=== PATIENT | male | born 1960 | race Caucasian/White ===

== ENCOUNTER 2018-07-24 13:12 | Day surgery (SDC) | payer OTHER ==
[~2018-07-24] VITALS: Ht 180.3 cm; Wt 91.0 kg
[~2018-07-24 13:12] MED LIST: ATOR80 PO; CEPH500 PO; CLOP75 PO; Depakene250 MG PO; LEVSOD50 PO; Lopressor 25 mg25 MG PO; METF500C PO; SERT100 PO; SILDENAFIL CIT100 MG PO
--- NOTE | 2018-07-24 14:44 | NUR ---
07/24/18 1444 Ramiro Jauregui LATE ENTRY-1416 PATIENT DRANK A LARGE GLASS OF CRANBERRY JUICE AND STATES HE FEELS GOOD AND IS READY TO GO HOME. VSS
--- NOTE | 2018-07-24 14:47 | NUR ---
07/24/18 1447 Ramiro Jauregui LATE ENTRY-1340 PATIENT HAD A CBG OF [address] HILL NOTIFIED. DR HILL ORDERED DEXTROSE 50% GIVE 1/2 AN AMP IV. GAVE PATIENT THE DEXTROSE AND HE STATED HE FELT MUCH BETTER ALREADY. DR HILL STATED NO NEED TO RECHECK CBG BECAUSE HE IS GOING TO EAT AFTER AND DRINK.
== END 2018-07-24 14:35 | disposition home or self-care (01) ==
LOC: ORSCSDS 13:12
PROVIDERS: Internal Medicine Gastroenterology
PROC: 0DBM8ZX Excision of Descending Colon, Via Natural or Artificial Opening Endoscopic, Diagnostic (ICD-10-PCS; principal; 2018-07-24 14:45)
PROC: 0DBP8ZX Excision of Rectum, Via Natural or Artificial Opening Endoscopic, Diagnostic (ICD-10-PCS; principal; 2018-07-24 14:45)
DX: Z12.11 Encounter for screening for malignant neoplasm of colon (principal); D12.4 Benign neoplasm of descending colon; K62.1 Rectal polyp; K64.8 Other hemorrhoids; K57.30 Diverticulosis of large intestine without perforation or abscess without bleeding; E03.9 Hypothyroidism, unspecified; E11.9 Type 2 diabetes mellitus without complications; I10 Essential (primary) hypertension; F31.9 Bipolar disorder, unspecified; Z87.891 Personal history of nicotine dependence; Z79.899 Other long term (current) drug therapy; Z79.84 Long term (current) use of oral hypoglycemic drugs
CPT/HCPCS: 82947; 88305; J7120

== ENCOUNTER 2022-03-10 10:23 | Day surgery (SDC) | payer OTHER ==
[~2022-03-10] VITALS: Ht 180.3 cm; Wt 87.0 kg
[~2022-03-10 10:23] MED LIST changes: +Aspir 8181 MG PO; +BUSP10 PO; +Crestor40 MG PO; +GLIP10 PO; +Lisinopril2.5 MG PO; +NITR.4SL SL
[2022-03-10] MEDS ORDERED: Primidone50 MG PO (10:54)
--- NOTE | 2022-03-10 11:59 | NUR ---
History, Chart, Medications and Allergies reviewed before start of procedure. Patient States Post-Procedure ride home has been arranged.
--- NOTE | 2022-03-10 13:49 | NUR ---
03/10/22 [facility] 15ML ISOVUE INJECTED DURING POWERPORT PLACEMENT
--- NOTE | 2022-03-10 15:20 | NUR ---
Patient up to Ambulate independently. Gait steady. Discharge instructions reviewed with patient. Patient verbalizes understanding. Copy given to patient to take home, WELL . Patient States Post-Procedure ride home has been arranged. Discharged via wheelchair to private car for ride home. DRESSING REMAINED C/D/I. PT REPORTS READY TO GO HOME. PT TOLERATING PO.
== END 2022-03-10 15:20 | disposition home or self-care (01) ==
LOC: ORSCMMR 10:23 → ORD 12:00 → ORSCMMR 12:00
PROVIDERS: Surgery
PROC: 05HM33Z Insertion of Infusion Device into Right Internal Jugular Vein, Percutaneous Approach (ICD-10-PCS; principal; 2022-03-10 12:00)
DX: C22.1 Intrahepatic bile duct carcinoma (principal); I25.2 Old myocardial infarction; I25.10 Atherosclerotic heart disease of native coronary artery without angina pectoris; J45.909 Unspecified asthma, uncomplicated; F31.9 Bipolar disorder, unspecified; K21.9 Gastro-esophageal reflux disease without esophagitis; E11.9 Type 2 diabetes mellitus without complications; E78.5 Hyperlipidemia, unspecified; E03.9 Hypothyroidism, unspecified; Z79.82 Long term (current) use of aspirin; Z79.899 Other long term (current) drug therapy
CPT/HCPCS: 77001; 82947; C1788; J0690; J1100; J1642; J1885; J2250; J2405; J2704; J3010; J7120

== ENCOUNTER 2022-06-21 13:17 | Day surgery (SDC) | payer OTHER ==
[~2022-06-21 13:17] MED LIST changes: +Primidone50 MG PO
[2022-06-21] MEDS ORDERED: ZYPREXA2.5 MG PO (14:27)
[2022-06-21] MEDS ORDERED: TRULICITY0.75 MG/01 SC (14:29)
== END 2022-06-21 16:26 | disposition home or self-care (01) ==
LOC: ATC 13:17
DX: C22.1 Intrahepatic bile duct carcinoma (principal)
CPT/HCPCS: 36415; 86850; 86900; 86901; 86920; J1642; J7040; P9016

== ENCOUNTER 2022-06-23 10:23 | Day surgery (SDC) | payer OTHER ==
[~2022-06-23 10:23] MED LIST changes: +TRULICITY0.75 MG/01 SC; +ZYPREXA2.5 MG PO
== END 2022-06-23 17:15 | disposition home or self-care (01) ==
LOC: ATC 10:23
DX: C22.1 Intrahepatic bile duct carcinoma (principal)
CPT/HCPCS: 86900; 86901; J1642; J7040; P9035

== ENCOUNTER 2022-12-13 12:04 | Day surgery (SDC) | payer OTHER ==
[2022-12-13 14:43] VITALS: BP 109/72
[2022-12-13 15:02] VITALS: BP 95/63
[2022-12-13 16:31] VITALS: BP 100/64
[2022-12-13 17:44] VITALS: BP 94/68
== END 2022-12-13 22:52 | disposition home or self-care (01) ==
LOC: ATC 12:04
DX: D64.81 Anemia due to antineoplastic chemotherapy (principal); C22.1 Intrahepatic bile duct carcinoma; J45.909 Unspecified asthma, uncomplicated; E11.9 Type 2 diabetes mellitus without complications; E03.9 Hypothyroidism, unspecified; E78.5 Hyperlipidemia, unspecified; Z95.5 Presence of coronary angioplasty implant and graft; Z87.891 Personal history of nicotine dependence
CPT/HCPCS: 36415; 36430; 86850; 86900; 86901; 86923; J1642; J7050; P9016

== ENCOUNTER 2022-12-16 00:51 | Day surgery (SDC) | payer OTHER ==
[2022-12-16 13:54] VITALS: BP 89/55
[2022-12-16 14:17] VITALS: BP 85/55
[2022-12-16 14:41] VITALS: BP 85/55
[2022-12-16 15:15] VITALS: BP 90/42
== END 2022-12-16 15:20 | disposition home or self-care (01) ==
LOC: ATC 00:51
DX: D69.6 Thrombocytopenia, unspecified (principal); C22.1 Intrahepatic bile duct carcinoma; E11.9 Type 2 diabetes mellitus without complications; E03.9 Hypothyroidism, unspecified; E78.5 Hyperlipidemia, unspecified; J45.909 Unspecified asthma, uncomplicated; Z95.5 Presence of coronary angioplasty implant and graft; Z87.891 Personal history of nicotine dependence; Z79.82 Long term (current) use of aspirin; Z79.899 Other long term (current) drug therapy
CPT/HCPCS: 36430; 86900; 86901; J1642; J7050; P9035

== ENCOUNTER 2023-01-18 01:05 | Day surgery (SDC) | payer OTHER ==
[2023-01-18 14:57] VITALS: BP 96/63
[2023-01-18 15:13] VITALS: BP 91/59
[2023-01-18 16:15] VITALS: BP 103/62
[2023-01-18 16:30] VITALS: BP 103/62
== END 2023-01-18 16:33 | disposition home or self-care (01) ==
LOC: ATC 01:05
DX: D69.6 Thrombocytopenia, unspecified (principal); E11.9 Type 2 diabetes mellitus without complications; E03.9 Hypothyroidism, unspecified; E78.5 Hyperlipidemia, unspecified
CPT/HCPCS: 36430; 86850; 86900; 86901; 86923; J1642; J7050; P9016

== ENCOUNTER 2023-03-15 03:51 | Day surgery (SDC) | payer OTHER ==
[2023-03-15 14:47] VITALS: BP 91/61
[2023-03-15 15:01] VITALS: BP 85/55
[2023-03-15 16:06] VITALS: BP 85/61
[2023-03-15 16:22] VITALS: BP 87/56
== END 2023-03-15 16:34 | disposition home or self-care (01) ==
LOC: ATC 03:51
DX: C22.1 Intrahepatic bile duct carcinoma (principal); I25.2 Old myocardial infarction; E11.9 Type 2 diabetes mellitus without complications; J45.909 Unspecified asthma, uncomplicated; E03.9 Hypothyroidism, unspecified; E78.5 Hyperlipidemia, unspecified; Z87.891 Personal history of nicotine dependence; Z79.82 Long term (current) use of aspirin; Z79.890 Hormone replacement therapy; Z79.84 Long term (current) use of oral hypoglycemic drugs; Z79.899 Other long term (current) drug therapy
CPT/HCPCS: 36430; 86850; 86900; 86901; 86923; J1642; J7050; P9016

== ENCOUNTER 2023-04-19 01:07 | Day surgery (SDC) | payer OTHER ==
[2023-04-17 12:51] LABS: BASOPHILS ABSOLUTE AUTO 0.03 K/mm3 (0.00-0.23); BASOPHILS PERCENT AUTO 0 % (0-2); EOSINOPHILS ABSOLUTE AUTO 0.07 K/mm3 (0.00-0.68); EOSINOPHILS PERCENT AUTO 1 % (0-6); Hematocrit 21.4 % (37.0-53.0); Hemoglobin 7.1 g/dL (13.5-17.5); IMMATURE GRAN ABSOLUTE AUTO 0.04 K/mm3 (0.00-0.10); IMMATURE GRAN PERCENT AUTO 1 % (0-1); LYMPHOCYTES ABSOLUTE AUTO 1.41 K/mm3 (0.84-5.20); LYMPHOCYTES PERCENT AUTO 19 % (21-46); MONOCYTES ABSOLUTE AUTO 0.28 K/mm3 (0.16-1.47); MONOCYTES PERCENT AUTO 4 % (4-13); Mean Corpuscular HGB 31.6 pg (26.0-34.0); Mean Corpuscular HGB Conc 33.2 g/dL (31.5-36.5); Mean Corpuscular Volume 95 fL (80-100); Mean Platelet Volume 11.2 fL (9.1-12.4); NEUTROPHILS ABSOLUTE AUTO 5.46 K/mm3 (1.96-9.15); NEUTROPHILS PERCENT AUTO 75 % (41-73); Platelet Count 79 K/mm3 (150-400); RDW Coefficient Variation 16.6 % (11.7-14.2); RDW Standard Deviation 57.4 fL (35.1-46.3); Red Blood Cell Count 2.25 M/mm3 (4.30-5.90); White Blood Cell Count 7.29 K/mm3 (4.00-11.30)
[2023-04-17 14:17] LABS: Albumin, Blood 2.6 g/dL (3.4-5.0); Albumin/Globulin Ratio 0.8 (0.8-1.8); Bilirubin, Total 0.1 mg/dL (0.1-1.0); Bun/Creatinine Ratio 18.4 (12.0-20.0); Calcium, Blood 7.7 mg/dL (8.5-10.1); Creatinine, Blood 0.6 mg/dL (0.60-1.20); Globulin, Blood 3.1 g/dL (2.2-4.0); Potassium, Blood 3.7 mmol/L (3.5-5.5); Total Protein, Blood 5.7 g/dL (6.4-8.2)
[2023-04-19 08:44] VITALS: BP 96/62
[2023-04-19] MEDS ORDERED: ZYRTEC10 M2 PO (08:55)
[2023-04-19 09:12] VITALS: BP 89/57
[2023-04-19 10:09] VITALS: BP 98/65
[2023-04-19 10:35] VITALS: BP 109/66
== END 2023-04-19 10:34 | disposition home or self-care (01) ==
LOC: ATC 01:07 → LAB FUT 04-02 12:00 → EDSTATUS 04-02 12:00
PROVIDERS: Registered Nurse Oncology
DX: C22.1 Intrahepatic bile duct carcinoma (principal); E11.9 Type 2 diabetes mellitus without complications; J45.909 Unspecified asthma, uncomplicated; E03.9 Hypothyroidism, unspecified; E78.5 Hyperlipidemia, unspecified; Z95.5 Presence of coronary angioplasty implant and graft; Z79.84 Long term (current) use of oral hypoglycemic drugs; Z79.890 Hormone replacement therapy; Z79.82 Long term (current) use of aspirin; Z79.899 Other long term (current) drug therapy
CPT/HCPCS: 36415; 36430; 80053; 84443; 85025; 86301; 86850; 86900; 86901; 86923; J1642; J7050; P9016

== ENCOUNTER 2023-05-29 03:35 | Day surgery (SDC) | payer OTHER ==
[~2023-05-29 03:35] MED LIST changes: +ZYRTEC10 M2 PO
[2023-05-29 13:49] VITALS: BP 120/72
[2023-05-29 14:08] VITALS: BP 111/64
[2023-05-29 15:11] VITALS: BP 124/68
[2023-05-29 16:00] VITALS: BP 122/78
[2023-05-29 17:41] VITALS: BP 100/73
== END 2023-05-29 17:40 | disposition home or self-care (01) ==
LOC: ATC 03:35
DX: C22.1 Intrahepatic bile duct carcinoma (principal); F31.9 Bipolar disorder, unspecified; E11.9 Type 2 diabetes mellitus without complications; J45.909 Unspecified asthma, uncomplicated; E03.9 Hypothyroidism, unspecified; E78.5 Hyperlipidemia, unspecified
CPT/HCPCS: 36430; 86850; 86900; 86901; 86923; J1642; J7050; P9016